=== PATIENT | male | born 1995 | race Caucasian/White ===

== ENCOUNTER 2024-03-03 21:14 | Emergency (ER) | payer SELFPAY ==
--- NOTE | 2024-03-03 21:21 | ED_ITS ---
Discharge Plan Referrals Follow up/Referrals: Provider,Referral, [Primary Care Provider] - See instructions Discharge ED Provider: João Handley General Adult HPI General Stated complaint: WC 03/03 just checked out Time Seen by Provider: 03/03/24 21:18 [facility] Disclaimer: The information contained in this section may have been updated after the patient was seen, as this information can be updated by other users. ROS Obtained: Yes Systems reviewed as appropriate & no additional complaints except as documented Physical Exam General General appearance: alert and in no apparent distress Head Head exam: atraumatic and normal inspection Eye Eye exam: Present normal appearance, PERRL and EOMI ENT ENT exam: Present normal exam, normal oropharynx and mucous membranes moist Neck Neck exam: Present normal inspection, full ROM and trachea midline; Absent lymphadenopathy Chest Chest inspection: Present normal inspection and symmetric chest wall rise Respiratory Respiratory exam: Present normal lung sounds bilaterally; Absent accessory muscle use Cardiovascular Cardiovascular exam: Present regular rate, normal rhythm, normal heart sounds, +S1 and +S2 Abdominal Exam Abdominal exam: Present soft and normal bowel sounds; Absent tenderness, guarding or rebound Extremities Exam Extremities exam: Present normal inspection and full ROM Neurological Exam Neurological exam: Present alert, oriented X3 and CN II-XII intact Psychiatric Psychiatric exam: Present normal affect and normal mood Skin Skin exam: Present warm, dry and normal color Lymphatic Lymphatic Findings: no adenopathy Medical Decision Making Medical Decision Narrative: In summary patient is a [age, sex] who presents to the emergency department for evaluation of [complaint]. Patient is [hemodynamically stable/unstable] upon arrival, [febrile/afebrile]. [Unremarkable physical exam, nonfocal exam versus focal remarkable exam]. Differential diagnosis includes [DDx]. Initial workup will be conducted with [hematologic labs, imaging, respiratory swab, describe workup]. Initial interventions include [crystalloid bolus, medications, p.o. challenge, etc.] initial workup reviewed by me [hematologic labs are remarkable for... Imaging remarkable for... Urinalysis remarkable for]. Upon repeat evaluation [patient had acceptable resolution of symptoms, had persistent pain for which additional interventions were conducted (describe interventions), tolerated p.o., was ambulatory, etc.]. Given this [patient is appropriate for discharge at this time and will be discharged with a prescription for... The case was discussed with hospital medicine regarding management and they will admit the patient their service for continued evaluation at this time... Etc.] Places where you can increase complexity: I informally interpreted the patient's chest x-ray or CT read and is remarkable for... Documenting what the potline monitor shows with rate and rhythm Consideration of test but deferring. Ex: I considered chest x-ray on this patient however given that they have no oxygen requirement and are clear to auscultation all lung english will be deferred. Social determinants of health: Given that patient is undomiciled increases complexity. Given that patient has polysubstance abuse compounds all aspects of care
[2024-03-03 21:34] VITALS: BP 0/0; PULSE 0; RESP 0; TEMP -17.7; TEMP 0
[2024-03-03 21:47] LABS: COC Drug Screen Collection Only
== END 2024-03-03 21:44 | disposition left against medical advice (07) ==
LOC: ER 21:36
PROVIDERS: Emergency Provider Emergency Medicine
DX: Z53.21 Procedure and treatment not carried out due to patient leaving prior to being seen by health care provider (principal)
CPT/HCPCS: 99211

== ENCOUNTER 2024-03-03 21:37 | Outpatient (CLI) | payer SELFPAY | END 2024-03-03 23:59 | disposition home or self-care (01) | LOC: UTC.OUT 21:39 | PROVIDERS: Visit Provider Nurse Practitioner Family | DX: N39.0 Urinary tract infection, site not specified (principal) ==

== ENCOUNTER 2025-09-25 20:19 | Emergency (ER) | payer SELFPAY ==
[2025-09-25 20:45] VITALS: BP 140/84; PULSE 86; RESP 18; TEMP 37; O2SAT 100; BMI 28.7
--- NOTE | 2025-09-25 20:48 | ED_ITS ---
<Statement entered by Neto Connor MD - 09/26/25 12:11> I was consulted by the MALLORY, and we discussed the complexity of the problems being addressed. I approve the treatment and management plan for this patient's care in the emergency department, thus performing a substantive portion of the medical decision making. Neto Connor MD Discharge Plan Disposition Patient Disposition: Home, Self-Care Condition: Good Prescriptions Prescriptions: New amoxicillin-pot clavulanate 875-125 mg tablet 1 tab PO BID Qty: 20 0RF Referrals Follow up/Referrals: Provider,Referral, [Primary Care Provider, Medical] - See instructions Activity Restrictions/Add. Instructions Additional Instructions/Restrictions: Keep bite clean and dry and covered. Use ice for comfort. Take ibuprofen and Tylenol for pain. If not improving please return to the ED or see your PCP. Clinical Impressions Clinical Impression: Dog bite Instructions Patient Instructions: How to Care for a Domestic Animal Bite, Animal Bites, DI for Dog Bite Print Language Print Language: Irish Discharge ED Provider: Neto Connor General Adult HPI General Chief complaint: Animal Bite Stated complaint: dog bite rt arm 121999 Time Seen by Provider: 09/25/25 20:39 Mode of Arrival: Ambulatory Source of Information: Patient Description of Symptoms (Recalled from ER Triage Doc. by RN): PT presents to the ED for evaluation of Dog bite to R forearm History of Present Illness HPI narrative: 30-year-old male presents to the ED today for evaluation of a dog bite to the right forearm. He was playing with his dog and the other dog tried to bite the other dog and his arm got in the way. Dog has had all shots. Patient needs tetanus. Bleeding is controlled. Related Data Previous Rx's ?Medication ?Instructions ?Recorded amoxicillin 875 mg-potassium 1 tab PO BID #20 tabs 11/19 clavulanate 125 mg tablet Allergies Allergy/AdvReac Type Severity Reaction Status Date / Time No Known Allergies Allergy Verified 09/25/25 20:54 [facility] Disclaimer: The information contained in this section may have been updated after the patient was seen, as this information can be updated by other users. Social History (Updated 09/25/25 @ 20:54 by Caroline Bailon (ED), CREATIVE TECH[employer]OLOG[employer]) Smoking Status: Never smoker alcohol intake: former current occupational status: other Travel in the last 8 weeks?: None ROS Obtained: Yes Systems reviewed as appropriate & no additional complaints except as documented Constitutional Constitutional: Reports as per HPI Physical Exam General General appearance: alert and in no apparent distress Head Head exam: atraumatic Eye Eye exam: Present PERRL and EOMI Neck Neck exam: Present full ROM Respiratory Respiratory exam: Present normal lung sounds bilaterally Cardiovascular Cardiovascular exam: Present regular rate Extremities Exam Extremities exam: Present tenderness and edema Neurological Exam Neurological exam: Present alert and oriented X3 Skin Skin exam: Present warm and erythema Medical Decision Making Medical Records Screening: Per USPSTF and CDC recommendations, given the prevalence of disease in our region, it is our hospital?s policy to screen for HIV and viral Hepatitis for all patients aged 18 and over and those with ongoing risk factors. Emile Inquiry Pt receiving controlled substance: No Emile was queried for this patient: No Vital Signs: 09/25/25 20:45 09/25/25 21:00 Temperature 98.6 F 98 F Temperature Source Oral Oral Pulse Rate 80 Pulse Rate [Right] 86 Respiratory Rate 18 16 Blood Pressure 164/102 H Blood Pressure [Right Arm] 140/84 Blood Pressure Mean [Right Arm] 102 Blood Pressure Source Automatic Cuff Blood Pressure Position Sitting 02 Sat by Pulse Oximetry 100 Oxygen Delivery Method Room Air Room Air Orders (Tests/Meds): ED MEDICATIONS Discontinued Medications Generic Name Dose Route Start Last Admin Trade Name Freq PRN Reason Stop Dose Admin Amoxicillin/Clavulanate Potassium 1 each 09/25/25 20:41 09/25/25 20:59 Amoxicillin/Clavulanate Potassium 875/125mg Tablet PO 09/25/25 20:42 1 each ONCE ONE Administration Tetanus/Reduced Diphtheria/Acell Pertussis 0.5 ml 09/25/25 20:41 09/25/25 2 0:59 Tet/Diphth/Pert-Adult 0.5ml Syringe IM 09/25/25 20:42 0.5 ml .ONCE ONE Administration Medical Decision Narrative: patient is a 30-year-old male presenting to the emergency department for evaluation of dog bite on right arm. Patient is hemodynamically stable and nontoxic-appearing upon arrival, afebrile. Differential diagnosis includes dog bite. Patient dog bite cleaned with [employer] talaverafly the largest wound and covered the wound. I did not suture anything because I did not want to increase risk of infection. Patient placed on antibiotics. Patient safe for discharge home. Critical Care Critical Care Time Critical Care Time: No
--- NOTE | 2025-09-25 20:52 | PC.NURSE ---
animal bite form faxed
[2025-09-25] MEDS: AMOXICILLIN/CLAVULANATE POTASSIUM 875/125MG TABLET 1 EACH PO (20:59)
[2025-09-25] MEDS: TET/DIPHTH/PERT-ADULT 0.5ML SYRINGE 0.5 ML IM (20:59)
[2025-09-25 21:00] VITALS: BP 164/102; PULSE 80; RESP 16; TEMP 36.6; O2SAT 100
== END 2025-09-25 21:17 | disposition home or self-care (01) ==
LOC: ER 21:16
PROVIDERS: Emergency Provider Student in an Organized Health Care Education/Training Program
DX: S51.851A Open bite of right forearm, initial encounter (principal); W54.0XXA Bitten by dog, initial encounter
CPT/HCPCS: 90471; 90715; 99283; 99284